=== PATIENT | male | born 1960 ===

== ENCOUNTER 2024-03-30 13:53 | Observation (INO) | payer BC ==
[2024-03-30] MEDS ORDERED: THIAMINE 100 MG TAB ONE (20:43)
[2024-03-31] MEDS ORDERED: SODIUM CHLORIDE 0.9% 1,000 ML BAG ONE (01:00)
[2024-03-31] MEDS ORDERED: THIAMINE 100 MG TAB ONE (07:44)
[2024-03-31] MEDS ORDERED: MULTIVITAMINS, THERA 1 EACH TAB ONE (07:44)
[2024-03-31] MEDS ORDERED: chlordiazePOXIDE 25 MG CAP ONE ×2 (15:20→21:30)
[2024-04-01] MEDS ORDERED: LORazepam 2 MG/ML INJ IV PRN ×4 (04:18→04:20)
[2024-04-01] MEDS ORDERED: IBUPROFEN 400 MG TAB PO PRN (04:24)
[2024-04-01] MEDS ORDERED: NALOXONE 0.4 MG/ML 1 ML VIAL IVP PRN (04:25)
[2024-04-01] MEDS ORDERED: ONDANSETRON 4 MG/2 ML VIAL IVP PRN (04:25)
[2024-04-01] MEDS: SODIUM CHLORIDE 0.9% 1,000 ML IV SCH (05:55)
[2024-04-01] MEDS ORDERED: chlordiazePOXIDE 25 MG CAP ONE (07:49)
[2024-04-01 08:36] VITALS: BP 103/58; PULSE 68; RESP 18; TEMP 97.4
[2024-04-01] MEDS: chlordiazePOXIDE 25 MG CAP PO SCH (08:38)
[2024-04-01] MEDS: MULTIVITAMINS, THERA 1 EACH TAB PO SCH (08:38)
--- NOTE | 2024-04-01 13:01 | P.DS ---
Providers Date of admission: 03/30/24 13:53 Expected date of discharge: 04/01/24 Attending physician: Maury Garcia MD Primary care physician: Stated None Hospital Course: 63-year-old male with history of EtOH abuse presented to the hospital because of drinking too much. He has history of alcoholism and has been periods of sobering on and off. He has been attending alcohol Anonymous sessions to try to figure out why he was drinking. Upon admission he was intoxicated, was initiated on CIWA protocol. He did not require significant amount of Ativan. CIWA scores were persistently low for 48 hours. Currently stable for discharge. He was advised against drinking in the future. He agrees with that. He will be discharged home in stable condition.
[2024-04-02] MEDS ORDERED: THIAMINE 100 MG TAB PO SCH (09:00)
== END 2024-04-01 13:45 | disposition home or self-care (01) ==
LOC: INTOOBSV 13:53 → 6NMEDSUR 13:53
PROVIDERS: ADMIT Family Medicine; ATTEND Family Medicine
DX: F10.129 Alcohol abuse with intoxication, unspecified (principal); Y90.8 Blood alcohol level of 240 mg/100 ml or more; E86.0 Dehydration; F17.210 Nicotine dependence, cigarettes, uncomplicated
CPT/HCPCS: 96360; 99285